=== PATIENT | female | born 1970 | race Caucasian/White ===

== ENCOUNTER 2017-11-24 01:11 | Observation (INO) | payer BC, OTHER ==
[2017-11-24] MEDS ORDERED: Sodium Chloride 0.9% 1,000 ML IV ONE (01:16)
[2017-11-24] MEDS ORDERED: Aspirin 81 MG Tab.Chew PO ONE (01:16)
[2017-11-24] MEDS ORDERED: Sodium Chloride 0.9% 2.5 ML Syringe FLUSH PRN (01:16)
[2017-11-24] MEDS ORDERED: Diltiazem 25 MG/5 ML SDV IVPUSH ONE ×2 (01:19→02:32)
[2017-11-24] MEDS: Sodium Chloride 0.9% 10 ML Syringe FLUSH PRN ×2 (01:25→01:30)
[2017-11-24] MEDS: Sodium Chloride 0.9% 2.5 ML Syringe FLUSH PRN ×2 (01:30→01:31)
--- NOTE | 2017-11-24 01:31 | EDM.PDOC ---
ED HPI GENERAL MEDICAL PROBLEM - General Chief Complaint: Cardiovascular Problem Stated Complaint: CHEST PAIN Time Seen by Provider: 11/24/17 01:24 Source of Information: Reports: Patient - History of Present Illness INITIAL COMMENTS - FREE TEXT/NARRATIVE: HISTORY AND PHYSICAL: History of present illness: 47-year-old female presenting to emergency department with chief complaint of chest pain and palpitations starting at 11 PM. Patient states that approximately 11 PM she felt some "weird fluttering of my heart". States that this has happened before but it usually went away quickly. She initially thought that this was secondary to her anxiety so laid down but her symptoms persisted. She did have some associated left substernal chest pain without radiation. She did have mild nausea but denies any shortness of breath diaphoresis or arm or jaw pain. Chest pain lasted for approximately 30 seconds to 1 minute and was relieved on its own. She had a previous episode that occurred several years ago but was short and went away on its own. She has never had further workup. She denies any significant cardio pulmonary history. Up until this she had been feeling her normal self and denies any recent illness , fever, chills, malaise, dysuria, nominal pain, diarrhea, or other signs of systemic infection. She currently denies any chest pain, shortness of breath, syncopal episodes, focal neurologic deficits. She denies any allergies and sees Dr. Cedeno at [facility] as her PCP. Patient was initially given 20 mg of Cardizem IV. She did have some gnosticist of normal sinus rhythm however did return to A. fib with RVR. She was given an additional 20 mg of Cardizem IV. Blood pressure remained stable. Potassium found to be 2.7. Patient given 40 mg KCl PO. Mag ordered. Review of systems: As per history of present illness and below otherwise all systems reviewed and negative. Past medical history: As per history of present illness and as reviewed below otherwise noncontributory. Surgical history: As per history of present illness and as reviewed below otherwise noncontributory. Social history: No reported history of drug or alcohol abuse. Family history: As per history of present illness and as reviewed below otherwise noncontributory. Physical exam: HEENT: Atraumatic, normocephalic, pupils reactive, negative for conjunctival pallor or scleral icterus, mucous membranes moist, throat clear, neck supple, nontender, trachea midline. Lungs: Clear to auscultation, breath sounds equal bilaterally, chest nontender. Heart: Irregular irregular, tachycardic, negative for clicks, rubs, or JVD. Abdomen: Soft, nondistended, nontender. Negative for masses or hepatosplenomegaly. Negative for costovertebral tenderness. Pelvis: Stable nontender. Genitourinary: Deferred. Rectal: Deferred. Extremities: Atraumatic, negative for cords or calf pain. Neurovascular unremarkable. Neuro: Awake, alert, oriented. Cranial nerves II through XII unremarkable. Cerebellum unremarkable. Motor and sensory unremarkable throughout. Exam nonfocal. Diagnostics: CBC, CMP, troponin, INR, chest x-ray, EKG, UA/UC, Mag Therapeutics: 1 L and normal saline, Cardizem 20 mg IV x2, KCl 40 mg Impression: A. fib with RVR Chest pain Plan: CBC, troponin, INR, chest x-ray, and UA were all unremarkable. Patient did have some hypokalemia and was given 40 mg oral KCl and magnesium was checked. Patient initially went in and out of A. fib with RVR after 20 mg of Cardizem. She did not sustain normal sinus rhythm so was given a additional Cardizem 20 mg IV which once again put her in normal sinus rhythm but did continue to have intermittent episodes of A. fib with RVR. Hospitalist Dr. Parrish was advised of the patient and accepted for observation for paroxysmal A. fib with RVR. Blood pressure remained stable in the 140s systolic throughout. Patient had no further episodes of chest pain. denies pain Pain Score (Numeric/FACES): 0 - Related Data Allergies Allergy/AdvReac Type Severity Reaction Status Date / Time No Known Allergies Allergy Verified 11/24/17 01:24 Home Meds: Home Meds Hydrochlorothiazide 25 mg PO DAILY 07/18/14 [History] Aspirin 1 tab PO DAILY 11/24/17 [History] ED ROS GENERAL - Review of Systems Review Of Systems: See Below ED EXAM, GENERAL - Physical Exam Exam: See Below Course - Vital Signs Last Recorded V/S: Last Vital Signs Temp 98.6 F 11/24/17 01:11 Pulse 120 H 11/24/17 02:40 Resp 18 11/24/17 02:40 BP 146/78 H 11/24/17 02:40 Pulse Ox 98 11/24/17 02:40 - Orders/Labs/Meds Orders: Active Orders 24 hr Category Date Time Status Cardiac Monitoring [RC] . DIRECTED Care 11/24/17 01:16 Active EKG Documentation Completion [RC] STAT Care 11/24/17 01:16 Active Oxygen Therapy [RC] ASDIRECTED Care 11/24/17 01:16 Active Pulse Oximetry [RC] ASDIRECTED Care 11/24/17 01:16 Active Chest 1V Frontal [CR] Stat Exams 11/24/17 01:16 Taken HCG QUALITATIVE,URINE [URCHEM] Stat Lab 11/24/17 02:01 Ordered MAGNESIUM [CHEM] Stat Lab 11/24/17 02:51 Ordered UA W/MICROSCOPIC [URIN] Stat Lab 11/24/17 02:01 Ordered Sodium Chloride 0.9% [Saline Flush] Med 11/24/17 01:16 Active 10 ml FLUSH ASDIRECTED PRN Sodium Chloride 0.9% [Saline Flush] Med 11/24/17 01:16 Active 2.5 ml FLUSH ASDIRECTED PRN Sodium Chloride 0.9% [Saline Flush] Med 11/24/17 01:16 Active 2.5 ml FLUSH ASDIRECTED PRN Saline Lock Insert [OM.PC] Stat Oth 11/24/17 01:16 Ordered Medication Orders Sodium Chloride (Saline Flush) 2.5 ml FLUSH ASDIRECTED PRN PRN Reason: Keep Vein Open Last Admin: 11/24/17 01:31 Dose: 2.5 ml Sodium Chloride (Saline Flush) 10 ml FLUSH ASDIRECTED PRN PRN Reason: Keep Vein Open Last Admin: 11/24/17 01:30 Dose: 10 ml Admin: 11/24/17 01:25 Dose: 10 ml Sodium Chloride (Saline Flush) 2.5 ml FLUSH ASDIRECTED PRN PRN Reason: Keep Vein Open Labs: Laboratory Tests 11/24/17 11/24/17 11/24/17 Range/Units 01:15 01:15 01:15 WBC 9.08 (4.0-11.0) K/uL RBC 4.27 L (4.30-5.90) M/uL Hgb 14.2 (12.0-16.0) g/dL Hct 40.3 (36.0-46.0) % MCV 94.4 (80.0-98.0) fL MCH 33.3 H (27.0-32.0) pg MCHC 35.2 (31.0-37.0) g/dL RDW Std Deviation 40.8 (28.0-62.0) fl RDW Coeff of Dominique 12 (11.0-15.0) % Plt Count 233 (150-400) K/uL MPV 10.40 (7.40-12.00) fL Neut % (Auto) 62.2 (48.0-80.0) % Lymph % (Auto) 26.1 (16.0-40.0) % [place] % (Auto) 9.0 (0.0-15.0) % Eos % (Auto) 2.6 (0.0-7.0) % Baso % (Auto) 0.1 (0.0-1.5) % Neut # (Auto) 5.6 (1.4-5.7) K/uL Lymph # (Auto) 2.4 (0.6-2.4) K/uL [place] # (Auto) 0.8 (0.0-0.8) K/uL Eos # (Auto) 0.2 (0.0-0.7) K/uL Baso # (Auto) 0.0 (0.0-0.1) K/uL INR 0.92 Sodium 140 (136-145) mmol/L Potassium 2.7 L (3.5-5.1) mmol/L Chloride 103 (98-107) mmol/L Carbon Dioxide 25.6 (21.0-32.0) mmol/L BUN 19 H (7.0-18.0) mg/dL Creatinine 1.2 H (0.6-1.0) mg/dL Est Cr Clr Drug Dosing 54.25 mL/min Estimated GFR (MDRD) 48.2 ml/min Glucose 119 H (74-106) mg/dL Calcium 8.8 (8.5-10.1) mg/dL Total Bilirubin 0.5 (0.2-1.0) mg/dL AST 20 (15-37) IU/L ALT 28 (14-63) IU/L Alkaline Phosphatase 55 (46-116) U/L Troponin I < 0.050 (0.000-0.056) ng/mL Total Protein 7.5 (6.4-8.2) g/dL Albumin 3.8 (3.4-5.0) g/dL Globulin 3.7 H (2.0-3.5) g/dL Albumin/Globulin Ratio 1.0 L (1.3-2.8) Urine Color Urine Appearance Urine pH (5.0-8.0) Ur Specific [place] (1.001-1.035) Urine Protein (NEGATIVE) mg/dL Urine Glucose (UA) (NEGATIVE) mg/dL Urine Ketones (NEGATIVE) mg/dL Urine Occult Blood (NEGATIVE) Urine Nitrite (NEGATIVE) Urine Bilirubin (NEGATIVE) Urine Urobilinogen (<2.0) EU/dL Ur Leukocyte Esterase (NEGATIVE) Urine RBC (0-2/HPF) Urine WBC (0-5/HPF) Ur Epithelial Cells (NONE-FEW) Urine Bacteria (NEGATIVE) Urine HCG, Qual (NEGATIVE) 11/24/17 11/24/17 Range/Units 02:01 02:01 WBC (4.0-11.0) K/uL RBC (4.30-5.90) M/uL Hgb (12.0-16.0) g/dL Hct (36.0-46.0) % MCV (80.0-98.0) fL MCH (27.0-32.0) pg MCHC (31.0-37.0) g/dL RDW Std Deviation (28.0-62.0) fl RDW Coeff of Dominique (11.0-15.0) % Plt Count (150-400) K/uL MPV (7.40-12.00) fL Neut % (Auto) (48.0-80.0) % Lymph % (Auto) (16.0-40.0) % [place] % (Auto) (0.0-15.0) % Eos % (Auto) (0.0-7.0) % Baso % (Auto) (0.0-1.5) % Neut # (Auto) (1.4-5.7) K/uL Lymph # (Auto) (0.6-2.4) K/uL [place] # (Auto) (0.0-0.8) K/uL Eos # (Auto) (0.0-0.7) K/uL Baso # (Auto) (0.0-0.1) K/uL INR Sodium (136-145) mmol/L Potassium (3.5-5.1) mmol/L Chloride (98-107) mmol/L Carbon Dioxide (21.0-32.0) mmol/L BUN (7.0-18.0) mg/dL Creatinine (0.6-1.0) mg/dL Est Cr Clr Drug Dosing mL/min Estimated GFR (MDRD) ml/min Glucose (74-106) mg/dL Calcium (8.5-10.1) mg/dL Total Bilirubin (0.2-1.0) mg/dL AST (15-37) IU/L ALT (14-63) IU/L Alkaline Phosphatase (46-116) U/L Troponin I (0.000-0.056) ng/mL Total Protein (6.4-8.2) g/dL Albumin (3.4-5.0) g/dL Globulin (2.0-3.5) g/dL Albumin/Globulin Ratio (1.3-2.8) Urine Color YELLOW Urine Appearance CLEAR Urine pH 6.0 (5.0-8.0) Ur Specific [place] <= 1.005 (1.001-1.035) Urine Protein NEGATIVE (NEGATIVE) mg/dL Urine Glucose (UA) NEGATIVE (NEGATIVE) mg/dL Urine Ketones NEGATIVE (NEGATIVE) mg/dL Urine Occult Blood NEGATIVE (NEGATIVE) Urine Nitrite NEGATIVE (NEGATIVE) Urine Bilirubin NEGATIVE (NEGATIVE) Urine Urobilinogen 0.2 (<2.0) EU/dL Ur Leukocyte Esterase NEGATIVE (NEGATIVE) Urine RBC 0-1 (0-2/HPF) Urine WBC 0-1 (0-5/HPF) Ur Epithelial Cells FEW (NONE-FEW) Urine Bacteria FEW (NEGATIVE) Urine HCG, Qual NEGATIVE (NEGATIVE) Meds: Medications Generic Name Dose Route Start Last Admin Trade Name Freq PRN Reason Stop Dose Admin Sodium Chloride 2.5 ml 11/24/17 01:16 11/24/17 01:31 Saline Flush FLUSH 2.5 ml ASDIRECTED PRN Administration Keep Vein Open Sodium Chloride 10 ml 11/24/17 01:16 11/24/17 01:30 Saline Flush FLUSH 10 ml ASDIRECTED PRN Administration Keep Vein Open Sodium Chloride 2.5 ml 11/24/17 01:16 Saline Flush FLUSH ASDIRECTED PRN Keep Vein Open Discontinued Medications Generic Name Dose Route Start Last Admin Trade Name Porfirioq PRN Reason Stop Dose Admin Aspirin 324 mg 11/24/17 01:16 11/24/17 01:26 Aspirin PO 11/24/17 01:17 324 mg ONETIME ONE Administration Diltiazem HCl 20 mg 11/24/17 01:19 11/24/17 01:20 Diltiazem IVPUSH 11/24/17 01:20 20 mg ONETIME ONE Administration Diltiazem HCl 20 mg 11/24/17 02:32 11/24/17 02:38 Diltiazem IVPUSH 11/24/17 02:33 20 mg ONETIME ONE Administration Sodium Chloride 1,000 mls @ 999 mls/hr 11/24/17 01:16 11/24/17 01:27 Normal Saline IV 11/24/17 02:16 999 mls/hr .Bolus ONE Administration Potassium Chloride 40 meq 11/24/17 02:50 Klor-Con M20 PO 11/24/17 02:51 ONETIME ONE Departure - Departure Time of Disposition: 03:06 Disposition: Admitted As Inpatient 66 Condition: Fair Clinical Impression: Paroxysmal atrial fibrillation with RVR Referrals: Jorge Cedeno MD [Primary Care Provider] - Forms: ED Department Discharge - My Orders Last 24 Hours: My Active Orders 11/24/17 01:16 Cardiac Monitoring [RC] . DIRECTED EKG Documentation Completion [RC] STAT Oxygen Therapy [RC] ASDIRECTED Pulse Oximetry [RC] ASDIRECTED Chest 1V Frontal [CR] Stat Sodium Chloride 0.9% [Saline Flush] 10 ml FLUSH ASDIRECTED PRN Sodium Chloride 0.9% [Saline Flush] 2.5 ml FLUSH ASDIRECTED PRN Sodium Chloride 0.9% [Saline Flush] 2.5 ml FLUSH ASDIRECTED PRN Saline Lock Insert [OM.PC] Stat 11/24/17 02:01 HCG QUALITATIVE,URINE [URCHEM] Stat UA W/MICROSCOPIC [URIN] Stat 11/24/17 02:51 MAGNESIUM [CHEM] Stat - Assessment/Plan Last 24 Hours: My Active Orders 11/24/17 01:16 Cardiac Monitoring [RC] . DIRECTED EKG Documentation Completion [RC] STAT Oxygen Therapy [RC] ASDIRECTED Pulse Oximetry [RC] ASDIRECTED Chest 1V Frontal [CR] Stat Sodium Chloride 0.9% [Saline Flush] 10 ml FLUSH ASDIRECTED PRN Sodium Chloride 0.9% [Saline Flush] 2.5 ml FLUSH ASDIRECTED PRN Sodium Chloride 0.9% [Saline Flush] 2.5 ml FLUSH ASDIRECTED PRN Saline Lock Insert [OM.PC] Stat 11/24/17 02:01 HCG QUALITATIVE,URINE [URCHEM] Stat UA W/MICROSCOPIC [URIN] Stat 11/24/17 02:51 MAGNESIUM [CHEM] Stat
[2017-11-24 02:18] LABS: CHLORIDE,CL 103 mmol/L (98-107); SODIUM,NA 140 mmol/L (136-145)
[2017-11-24] MEDS ORDERED: Potassium Chloride 20 MEQ Tab.ER PO ONE ×2 (02:50→19:35)
[2017-11-24] MEDS ORDERED: Magnesium Sulfate/Water 4 GM in Premix Bag 1 BAG IV ONE (04:24)
[2017-11-24] MEDS: Sodium Chloride 0.9% with KCl 1,000 ML IV SCH ×3 (05:30→18:41)
[2017-11-24] MEDS: Diltiazem 25 MG/5 ML SDV IVPUSH PRN ×3 (07:20→14:44)
--- NOTE | 2017-11-24 07:49 | PCM.HP ---
H&P History of Present Illness - General Date of Service: 11/24/17 Admit Problem/Dx: Admission Diagnosis/Problem Admission Diagnosis/Problem Atrial fibrillation with rapid ventricular response Source of Information: Patient History Limitations: Reports: No Limitations - History of Present Illness Initial Comments - Free Text/Narative: 47 yo fm with PMH of HTN admitted for AF with RVR. She developed palpitations and racing heart late last night around midnight. Symptoms were continuous so she decided to present to the ED. She denies any associated chest pain, sob, diaphoresis, dizziness, syncope, vision change, swelling, orthopnea, nausea, vomiting, abdominal pain, diarrhea, fever or chills. She has never had similar symptoms in the past. She has not had any recent illness or sob with activity. She admits to drinking 4-5 alcoholic beverages at a alliance party the day prior but states this was more alcohol than she usually drinks. She admits to normally drinking 1-3 alcoholic beverages on weekends only. Daily caffeine consumption includes 2 cups of coffee and a mountain dew. She is only on HCTZ for her HTN and states she is adherent to therapy. She was recently re-started on Diethylpropion for weight loss by her PCP Dr. Cedeno. She has taken this medication on and off an was on it last year for a few months and then just restarted 1 month prior. She is a previous smoker with estimated 20 pack year history but quit 1 year ago. In the ED her HR was 169 at admission. She was given Cardizem IV 20 mg x 2 doses. Her HR went down to 110s but then increased back up to 120-140s. She was also found to have to have hypokalemia with K of 2.7 and mild RUTH with Cr of 1.2. She was given 40 meq of K and 1 L NS bolus. Her CBC, CMP, troponin, UA and CXR were otherwise normal. She states that after receiving the medications her palpitations improved but never resolved. They have mostly been continuous since then. denies pain Pain Score (Numeric/FACES): 0 - Related Data Allergies/Adverse Reactions: Allergies Allergy/AdvReac Type Severity Reaction Status Date / Time Sulfa (Sulfonamide Allergy Rash Verified 11/24/17 03:52 Antibiotics) Home Medications: Home Meds Hydrochlorothiazide 25 mg PO DAILY 07/18/14 [History] Aspirin 1 tab PO DAILY 11/24/17 [History] Past Medical History Cardiovascular History: Reports: Hypertension - Past Surgical History HEENT Surgical History: Reports: Tonsillectomy Female Surgical History: Reports: Tubal Ligation Musculoskeletal Surgical History: Reports: Ganglion Cyst Social & Family History - Family History Family Medical History: Noncontributory - Tobacco Use Smoking Status *Q: Former Smoker Used Tobacco, but Quit: No - Caffeine Use Caffeine Use: Reports: Coffee - Alcohol Use Date of Last Drink: 11/22/17 - Recreational Drug Use Recreational Drug Use: No H&P Review of Systems - Review of Systems: Review Of Systems: See Below General: Reports: No Symptoms HEENT: Reports: No Symptoms Pulmonary: Reports: No Symptoms Cardiovascular: Reports: Palpitations Gastrointestinal: Reports: No Symptoms Genitourinary: Reports: No Symptoms Musculoskeletal: Reports: No Symptoms Skin: Reports: No Symptoms Psychiatric: Reports: No Symptoms Neurological: Reports: No Symptoms Hematologic/Lymphatic: Reports: No Symptoms Immunologic: Reports: No Symptoms Exam - Exam Exam: See Below - Vital Signs Vital Signs: Last Vital Signs Temp 36.6 C 11/24/17 07:18 Pulse 119 H 11/24/17 07:18 Resp 18 11/24/17 07:18 BP 124/66 11/24/17 07:18 Pulse Ox 97 11/24/17 07:18 Weight: 109.5 kg - Exam General: Alert, Oriented HEENT: Conjunctiva Clear, EACs Clear, EOMI, Hearing Intact, Mucosa Moist & [place] , Nares Patent, Normal Nasal Septum, Posterior Pharynx Clear, Pupils Equal, Pupils Reactive Neck: Supple, Trachea Midline Lungs: Clear to Auscultation, Normal Respiratory Effort Cardiovascular: Irregular Rhythm, Tachycardia GI/Abdominal Exam: Normal Bowel Sounds, Soft, Non-Tender, No Distention Back Exam: Normal Inspection, Full Range of Motion Extremities: Normal Inspection, Normal Range of Motion, Non-Tender, No Pedal Edema, Normal Capillary Refill Skin: Warm, Dry, Intact Neurological: Cranial Nerves Intact, Reflexes Equal Bilateral Neuro Extensive - Mental Status: Alert, Oriented x3, Normal Mood/Affect, Normal Cognition, Memory Intact Psychiatric: Alert, Normal Affect, Normal Mood - Patient Data Lab Results Last 24 hrs: Laboratory Results - last 24 hr 11/24/17 11/24/17 11/24/17 Range/Units 01:15 01:15 01:15 WBC 9.08 (4.0-11.0) K/uL RBC 4.27 L (4.30-5.90) M/uL Hgb 14.2 (12.0-16.0) g/dL Hct 40.3 (36.0-46.0) % MCV 94.4 (80.0-98.0) fL MCH 33.3 H (27.0-32.0) pg MCHC 35.2 (31.0-37.0) g/dL RDW Std Deviation 40.8 (28.0-62.0) fl RDW Coeff of Dominique 12 (11.0-15.0) % Plt Count 233 (150-400) K/uL MPV 10.40 (7.40-12.00) fL Neut % (Auto) 62.2 (48.0-80.0) % Lymph % (Auto) 26.1 (16.0-40.0) % [place] % (Auto) 9.0 (0.0-15.0) % Eos % (Auto) 2.6 (0.0-7.0) % Baso % (Auto) 0.1 (0.0-1.5) % Neut # (Auto) 5.6 (1.4-5.7) K/uL Lymph # (Auto) 2.4 (0.6-2.4) K/uL [place] # (Auto) 0.8 (0.0-0.8) K/uL Eos # (Auto) 0.2 (0.0-0.7) K/uL Baso # (Auto) 0.0 (0.0-0.1) K/uL INR 0.92 Sodium 140 (136-145) mmol/L Potassium 2.7 L (3.5-5.1) mmol/L Chloride 103 (98-107) mmol/L Carbon Dioxide 25.6 (21.0-32.0) mmol/L BUN 19 H (7.0-18.0) mg/dL Creatinine 1.2 H (0.6-1.0) mg/dL Est Cr Clr Drug Dosing 54.25 mL/min Estimated GFR (MDRD) 48.2 ml/min Glucose 119 H (74-106) mg/dL Calcium 8.8 (8.5-10.1) mg/dL Magnesium (1.5-2.0) mg/dL Total Bilirubin 0.5 (0.2-1.0) mg/dL AST 20 (15-37) IU/L ALT 28 (14-63) IU/L Alkaline Phosphatase 55 (46-116) U/L Troponin I < 0.050 (0.000-0.056) ng/mL Total Protein 7.5 (6.4-8.2) g/dL Albumin 3.8 (3.4-5.0) g/dL Globulin 3.7 H (2.0-3.5) g/dL Albumin/Globulin Ratio 1.0 L (1.3-2.8) Urine Color Urine Appearance Urine pH (5.0-8.0) Ur Specific [place] (1.001-1.035) Urine Protein (NEGATIVE) mg/dL Urine Glucose (UA) (NEGATIVE) mg/dL Urine Ketones (NEGATIVE) mg/dL Urine Occult Blood (NEGATIVE) Urine Nitrite (NEGATIVE) Urine Bilirubin (NEGATIVE) Urine Urobilinogen (<2.0) EU/dL Ur Leukocyte Esterase (NEGATIVE) Urine RBC (0-2/HPF) Urine WBC (0-5/HPF) Ur Epithelial Cells (NONE-FEW) Urine Bacteria (NEGATIVE) Urine HCG, Qual (NEGATIVE) 11/24/17 11/24/17 11/24/17 Range/Units 02:01 02:01 02:51 WBC (4.0-11.0) K/uL RBC (4.30-5.90) M/uL Hgb (12.0-16.0) g/dL Hct (36.0-46.0) % MCV (80.0-98.0) fL MCH (27.0-32.0) pg MCHC (31.0-37.0) g/dL RDW Std Deviation (28.0-62.0) fl RDW Coeff of Dominique (11.0-15.0) % Plt Count (150-400) K/uL MPV (7.40-12.00) fL Neut % (Auto) (48.0-80.0) % Lymph % (Auto) (16.0-40.0) % [place] % (Auto) (0.0-15.0) % Eos % (Auto) (0.0-7.0) % Baso % (Auto) (0.0-1.5) % Neut # (Auto) (1.4-5.7) K/uL Lymph # (Auto) (0.6-2.4) K/uL [place] # (Auto) (0.0-0.8) K/uL Eos # (Auto) (0.0-0.7) K/uL Baso # (Auto) (0.0-0.1) K/uL INR Sodium (136-145) mmol/L Potassium (3.5-5.1) mmol/L Chloride (98-107) mmol/L Carbon Dioxide (21.0-32.0) mmol/L BUN (7.0-18.0) mg/dL Creatinine (0.6-1.0) mg/dL Est Cr Clr Drug Dosing mL/min Estimated GFR (MDRD) ml/min Glucose (74-106) mg/dL Calcium (8.5-10.1) mg/dL Magnesium 1.8 (1.5-2.0) mg/dL Total Bilirubin (0.2-1.0) mg/dL AST (15-37) IU/L ALT (14-63) IU/L Alkaline Phosphatase (46-116) U/L Troponin I (0.000-0.056) ng/mL Total Protein (6.4-8.2) g/dL Albumin (3.4-5.0) g/dL Globulin (2.0-3.5) g/dL Albumin/Globulin Ratio (1.3-2.8) Urine Color YELLOW Urine Appearance CLEAR Urine pH 6.0 (5.0-8.0) Ur Specific [place] <= 1.005 (1.001-1.035) Urine Protein NEGATIVE (NEGATIVE) mg/dL Urine Glucose (UA) NEGATIVE (NEGATIVE) mg/dL Urine Ketones NEGATIVE (NEGATIVE) mg/dL Urine Occult Blood NEGATIVE (NEGATIVE) Urine Nitrite NEGATIVE (NEGATIVE) Urine Bilirubin NEGATIVE (NEGATIVE) Urine Urobilinogen 0.2 (<2.0) EU/dL Ur Leukocyte Esterase NEGATIVE (NEGATIVE) Urine RBC 0-1 (0-2/HPF) Urine WBC 0-1 (0-5/HPF) Ur Epithelial Cells FEW (NONE-FEW) Urine Bacteria FEW (NEGATIVE) Urine HCG, Qual NEGATIVE (NEGATIVE) 05/28/18 Range/Units 07:07 WBC (4.0-11.0) K/uL RBC (4.30-5.90) M/uL Hgb (12.0-16.0) g/dL Hct (36.0-46.0) % MCV (80.0-98.0) fL MCH (27.0-32.0) pg MCHC (31.0-37.0) g/dL RDW Std Deviation (28.0-62.0) fl RDW Coeff of Dominique (11.0-15.0) % Plt Count (150-400) K/uL MPV (7.40-12.00) fL Neut % (Auto) (48.0-80.0) % Lymph % (Auto) (16.0-40.0) % [place] % (Auto) (0.0-15.0) % Eos % (Auto) (0.0-7.0) % Baso % (Auto) (0.0-1.5) % Neut # (Auto) (1.4-5.7) K/uL Lymph # (Auto) (0.6-2.4) K/uL [place] # (Auto) (0.0-0.8) K/uL Eos # (Auto) (0.0-0.7) K/uL Baso # (Auto) (0.0-0.1) K/uL INR Sodium (136-145) mmol/L Potassium (3.5-5.1) mmol/L Chloride (98-107) mmol/L Carbon Dioxide (21.0-32.0) mmol/L BUN (7.0-18.0) mg/dL Creatinine (0.6-1.0) mg/dL Est Cr Clr Drug Dosing mL/min Estimated GFR (MDRD) ml/min Glucose (74-106) mg/dL Calcium (8.5-10.1) mg/dL Magnesium (1.5-2.0) mg/dL Total Bilirubin (0.2-1.0) mg/dL AST (15-37) IU/L ALT (14-63) IU/L Alkaline Phosphatase (46-116) U/L Troponin I < 0.050 (0.000-0.056) ng/mL Total Protein (6.4-8.2) g/dL Albumin (3.4-5.0) g/dL Globulin (2.0-3.5) g/dL Albumin/Globulin Ratio (1.3-2.8) Urine Color Urine Appearance Urine pH (5.0-8.0) Ur Specific [place] (1.001-1.035) Urine Protein (NEGATIVE) mg/dL Urine Glucose (UA) (NEGATIVE) mg/dL Urine Ketones (NEGATIVE) mg/dL Urine Occult Blood (NEGATIVE) Urine Nitrite (NEGATIVE) Urine Bilirubin (NEGATIVE) Urine Urobilinogen (<2.0) EU/dL Ur Leukocyte Esterase (NEGATIVE) Urine RBC (0-2/HPF) Urine WBC (0-5/HPF) Ur Epithelial Cells (NONE-FEW) Urine Bacteria (NEGATIVE) Urine HCG, Qual (NEGATIVE) Result Diagrams: 11/24/17 01:15 11/24/17 01:15 Problem List Initiated/Reviewed/Updated: Yes Orders Last 24hrs: Active Orders 24 hr Category Date Time Status Admission Status [Patient Status] [ADT] Stat ADT 11/24/17 03:20 Active Cardiac Monitoring [RC] . DIRECTED Care 11/24/17 01:16 Active Cardiac Monitoring [RC] . DIRECTED Care 11/24/17 03:20 Active Oxygen Therapy [RC] ASDIRECTED Care 11/24/17 01:16 Active Pulse Oximetry [RC] ASDIRECTED Care 11/24/17 01:16 Active Telemetry Monitoring [Cardiac Monitoring] [RC] Q8H Care 11/24/17 03:24 Active Regular Diet [DIET] Diet 11/24/17 Breakfast Active Chest 1V Frontal [CR] Stat Exams 11/24/17 01:16 Taken B-TYPE NATRIURETIC PEPTIDE,BNP [CHEM] Routine Lab 11/24/17 07:48 Ordered HCG QUALITATIVE,URINE [URCHEM] Stat Lab 11/24/17 02:01 Ordered TROPONIN I [CHEM] Q6H Lab 11/24/17 13:15 Ordered TSH [CHEM] Routine Lab 11/24/17 07:48 Ordered UA W/MICROSCOPIC [URIN] Stat Lab 11/24/17 02:01 Ordered Diltiazem Med 11/24/17 04:24 Active 10 mg IVPUSH Q3H PRN Metoprolol Tartrate [Lopressor] Med 11/24/17 09:00 Active 50 mg PO Q12HR Sodium Chloride 0.9% [Saline Flush] Med 11/24/17 01:16 Active 10 ml FLUSH ASDIRECTED PRN Sodium Chloride 0.9% [Saline Flush] Med 11/24/17 01:16 Active 2.5 ml FLUSH ASDIRECTED PRN Sodium Chloride 0.9% [Saline Flush] Med 11/24/17 01:16 Active 2.5 ml FLUSH ASDIRECTED PRN Sodium Chloride 0.9% with KCl [Normal Saline with 40 Med 11/24/17 04:30 Active mEq KCl] 1,000 ml IV ASDIRECTED Saline Lock Insert [OM.PC] Stat Oth 11/24/17 01:16 Ordered Medication Orders Diltiazem HCl (Diltiazem) 10 mg IVPUSH Q3H PRN PRN Reason: Tachycardia Last Admin: 11/24/17 07:20 Dose: 10 mg Potassium Chloride/Sodium Chloride (Normal Saline With 40 Meq Kcl) 1,000 mls @ 150 mls/hr IV ASDIRECTED BECKI Last Admin: 11/24/17 05:30 Dose: 150 mls/hr Metoprolol Tartrate (Lopressor) 50 mg PO Q12HR BECKI Sodium Chloride (Saline Flush) 2.5 ml FLUSH ASDIRECTED PRN PRN Reason: Keep Vein Open Last Admin: 11/24/17 01:31 Dose: 2.5 ml Sodium Chloride (Saline Flush) 10 ml FLUSH ASDIRECTED PRN PRN Reason: Keep Vein Open Last Admin: 11/24/17 01:30 Dose: 10 ml Admin: 11/24/17 01:25 Dose: 10 ml Sodium Chloride (Saline Flush) 2.5 ml FLUSH ASDIRECTED PRN PRN Reason: Keep Vein Open Assessment/Plan Comment:: 47 yo fm with history of HTN admitted for new onset AF with RVR. #AF with RVR -new onset, hr 120-140's after Cardizem 20 mg IV x2, BP stable, palpitations but otherwise asymptomatic -Hx of HTN controlled with HCTZ and Obesity on Diethylpropion -[id number] score 2 Plan: -admit to obs -cardiac monitoring -add TSH and BNP to labs -obtain echo -start Lopressor 50 mg BID -consider transfer to ICU for Cardizem Infusion if HR control not achieved #Hypokalemia -2.7 in ED, received 40 meq -repeat BMP in evening #RUTH -BUN 19, Cr 1.2, GFR 48.2 -received 1L IV NS bolus in ED -continue to monitor code: full diet: cardiac DVT Prophylaxis: Lovenox
[2017-11-24] MEDS ORDERED: Metoprolol Tartrate 50 MG Tab PO SCH (09:00)
[2017-11-24] MEDS ORDERED: Docusate Sodium 100 MG Cap PO PRN (09:18)
[2017-11-24] MEDS ORDERED: Acetaminophen 325 MG Tab PO PRN (09:18)
[2017-11-24] MEDS ORDERED: Ondansetron 4 MG Tab.DIS PO PRN (09:18)
[2017-11-24] MEDS: Enoxaparin 40 MG/0.4 ML Syringe SUBCUT SCH (10:34)
[2017-11-24] MEDS ORDERED: Metoprolol Tartrate 25 MG Tab PO ONE (12:59)
[2017-11-24] MEDS ORDERED: Diltiazem IR 30 MG Tab PO ONE (17:33)
[2017-11-24] MEDS: Metoprolol Tartrate 25 MG Tab PO SCH (20:03)
[2017-11-25] MEDS: Diltiazem IR 30 MG Tab PO SCH ×2 (00:24→06:23)
[2017-11-25] MEDS: Sodium Chloride 0.9% with KCl 1,000 ML IV SCH (01:30)
[2017-11-25 05:54] LABS: CHLORIDE,CL 112 mmol/L (98-107); SODIUM,NA 141 mmol/L (136-145)
[2017-11-25] MEDS: Metoprolol Tartrate 25 MG Tab PO SCH (08:47)
[2017-11-25 08:48] VITALS: BP 109/62
[2017-11-25] MEDS: Enoxaparin 40 MG/0.4 ML Syringe SUBCUT SCH (08:48)
--- NOTE | 2017-11-25 08:57 | PCM.DCSUM1 ---
<Sharona,Armani - Last Filed: 11/25/17 09:16> Discharge Summary - Hospital Course Free Text/Narrative:: 47 yo fm with history of HTN was admitted on 11/24/17 for new-onset Atrial fibrillation with RVR. She developed continuous palpitations around 11 pm on which promped her to go to ED. She denied any associated chest pain, sob, diaphoresis, dizziness, syncope, vision change, swelling, orthopnea, nausea, vomiting, abdominal pain, diarrhea, fever or chills. She has never had similar symptoms in the past. She has not had any recent illness or sob with activity. She admits to drinking 4-5 alcoholic beverages at a libertarian the day prior but states this was more alcohol than she usually drinks. She admits to normally drinking 1-3 alcoholic beverages on weekends only. Daily caffeine consumption includes 2 cups of coffee and a mountain dew. She is only on HCTZ for her HTN and states she is adherent to therapy. She was recently re-started on Diethylpropion for weight loss by her PCP Dr. Cedeno. She has taken this medication on and off an was on it last year for a few months and then just restarted 1 month prior. She is a previous smoker with estimated 20 pack year history but quit 1 year ago. In the ED her HR was 169 at admission. She was given Cardizem IV 20 mg x 2 doses. Her HR went down to 110s but then increased back up to 120-140s. She was also found to have to have hypokalemia with K of 2.7 and mild RUTH with Cr of 1.2. She was given 40 meq of K and 1 L NS bolus. Her CBC, CMP, troponin, UA and CXR were otherwise normal. She was admitted to floor for continued monitoring. She was started on Lopressor 50 mg BID which was then increased to 75 mg BID. She remained AF with hr 90-120. Cardizem 30 mg Q6H was then added. She received second dose of Cardizem 30 mg just after midnight of 11/24/17 and shortly after that converted back to NSR and remained so through the rest of night. From the time her symptoms started at home to conversion to NSR was 24-26 hours. She was discharged home on Cardizem CD 120 mg QD. She was on HCTZ for HTN which was held during stay, her BP was ranging 100-110 on Cardizem, therefore HCTZ was discontinued. Her Diethylproprion was also DC due to stimulatory effects. She was given Lovenox for anticoagulation during her stay, her [id number] score was 2, she was therefore discharged home on Eliquis. Echocardiogram was completed prior to discharge but reading was unavailable. F/U with Dr. Estrada hat finishing materials preparer was arranged prior to discharge. Discharge Diagnosis: #Atrial Fibrillation with RVR, resolved (duration approximately 24-26 hours) #Hx HTN, controlled -discontinue HCTZ -discontinue Diethylpropion -start Cardizem CD 120 mg QD -start Eliquis 5 mg BID -awaiting Echo results -f/u with Dr. Estrada, cardiology #RUTH, likely secondary to renal hypoperfusion, resolved -renal function at discharge BUN 13, Cr 0.9, GFR>60 #Hypokalemia, corrected #Hypocalcemia -mild, asymptomatic -start Calcium Carbonate OTC - Discharge Data Discharge Date: 11/25/17 Discharge Disposition: Home, Self-Care 01 Condition: Good - Patient Instructions Diet: Regular Diet as Tolerated Diet, Other: avoid excessive alcohol and caffeine Activity: As Tolerated Driving: May Drive Today Showering/Bathing: May Shower Notify Provider of: Fever, Increased Pain, Swelling and Redness, Drainage, Nausea and/or Vomiting - Discharge Plan Prescriptions/Med Rec: Apixaban [Eliquis] 5 mg PO BID 15 Days #30 tablet Diltiazem [Cardizem CD] 120 mg PO DAILY 15 Days #15 cap.er Home Medications: Home Meds Aspirin 1 tab PO DAILY 11/24/17 [History] Apixaban [Eliquis] 5 mg PO BID 15 Days #30 tablet 11/25/17 [Rx] Diltiazem [Cardizem CD] 120 mg PO DAILY 15 Days #15 cap.er 11/25/17 [Rx] Patient Handouts: Diltiazem extended-release capsules or tablets, Apixaban oral tablets, Atrial Fibrillation, [id number] Referrals: Aleksandra Estrada MD [Physician] - 11/27/17 3:30 pm Jorge Cedeno MD [Primary Care Provider] - 12/01/17 1:00 pm - Discharge Summary/Plan Comment DC Time >30 min.: No - Review of Systems General: Reports: No Symptoms HEENT: Reports: No Symptoms Pulmonary: Reports: No Symptoms Cardiovascular: Reports: No Symptoms Gastrointestinal: Reports: No Symptoms Genitourinary: Reports: No Symptoms Musculoskeletal: Reports: No Symptoms Skin: Reports: No Symptoms Neurological: Reports: No Symptoms Psychiatric: Reports: No Symptoms - Patient Data Vitals - Most Recent: Last Vital Signs Temp 36.6 C 11/25/17 07:31 Pulse 66 11/25/17 07:31 Resp 16 11/25/17 07:31 BP 106/66 11/25/17 07:31 Pulse Ox 96 11/25/17 07:31 Weight - Most Recent: 112.491 kg I&O - Last 24 hours: Intake & Output 11/24/17 11/25/17 11/25/17 22:59 06:59 14:59 Intake Total 2724 Output Total 1700 1700 Balance -1700 1024 Lab Results - Last 24 hrs: Laboratory Results - last 24 hr 11/24/17 11/24/17 11/24/17 Range/Units 07:07 13:40 13:40 Sodium 142 (136-145) mmol/L Potassium 3.6 (3.5-5.1) mmol/L Chloride 110 H (98-107) mmol/L Carbon Dioxide 23.6 (21.0-32.0) mmol/L BUN 13 (7.0-18.0) mg/dL Creatinine 1.0 (0.6-1.0) mg/dL Est Cr Clr Drug Dosing 67.63 mL/min Estimated GFR (MDRD) 59.4 ml/min Glucose 109 H (74-106) mg/dL Calcium 7.9 L (8.5-10.1) mg/dL Magnesium (1.5-2.0) mg/dL Troponin I < 0.050 (0.000-0.056) ng/mL TSH 3rd Generation 2.15 (0.36-3.74) uIU/mL 11/25/17 Range/Units 04:55 Sodium 141 (136-145) mmol/L Potassium 4.4 (3.5-5.1) mmol/L Chloride 112 H (98-107) mmol/L Carbon Dioxide 21.6 (21.0-32.0) mmol/L BUN 13 (7.0-18.0) mg/dL Creatinine 0.9 (0.6-1.0) mg/dL Est Cr Clr Drug Dosing 75.15 mL/min Estimated GFR (MDRD) > 60.0 ml/min Glucose 110 H (74-106) mg/dL Calcium 7.7 L (8.5-10.1) mg/dL Magnesium 2.1 H (1.5-2.0) mg/dL Troponin I (0.000-0.056) ng/mL TSH 3rd Generation (0.36-3.74) uIU/mL Med Orders - Current: Current Medications Acetaminophen (Tylenol) 650 mg PO Q4H PRN PRN Reason: Pain (Mild 1-3)/fever Diltiazem HCl (Cardizem) 30 mg PO Q6HR [facility] Last Admin: 11/25/17 06:23 Dose: 30 mg Docusate Sodium (Colace) 100 mg PO BID PRN PRN Reason: Constipation Last Admin: 11/24/17 10:33 Dose: 100 mg Enoxaparin Sodium (Lovenox) 40 mg SUBCUT Q24H [facility] Last Admin: 11/24/17 10:34 Dose: 40 mg Potassium Chloride/Sodium Chloride (Normal Saline With 40 Meq Kcl) 1,000 mls @ 150 mls/hr IV ASDIRECTED [facility] Last Admin: 11/25/17 01:30 Dose: 150 mls/hr Metoprolol Tartrate (Lopressor) 75 mg PO Q12HR [facility] Last Admin: 11/24/17 20:03 Dose: 75 mg Ondansetron HCl (Zofran Odt) 4 mg PO Q4H PRN PRN Reason: nausea, able to take PO Sodium Chloride (Saline Flush) 2.5 ml FLUSH ASDIRECTED PRN PRN Reason: Keep Vein Open Last Admin: 11/24/17 01:31 Dose: 2.5 ml Sodium Chloride (Saline Flush) 10 ml FLUSH ASDIRECTED PRN PRN Reason: Keep Vein Open Last Admin: 11/24/17 01:30 Dose: 10 ml Sodium Chloride (Saline Flush) 2.5 ml FLUSH ASDIRECTED PRN PRN Reason: Keep Vein Open Discontinued Medications Aspirin (Aspirin) 324 mg PO ONETIME ONE Stop: 11/24/17 01:17 Last Admin: 11/24/17 01:26 Dose: 324 mg Diltiazem HCl (Diltiazem) 20 mg IVPUSH ONETIME ONE Stop: 11/24/17 01:20 Last Admin: 11/24/17 01:20 Dose: 20 mg Diltiazem HCl (Diltiazem) 20 mg IVPUSH ONETIME ONE Stop: 11/24/17 02:33 Last Admin: 11/24/17 02:38 Dose: 20 mg Diltiazem HCl (Diltiazem) 10 mg IVPUSH Q3H PRN PRN Reason: Tachycardia Last Admin: 11/24/17 14:44 Dose: 10 mg Diltiazem HCl (Cardizem) 30 mg PO ONETIME ONE Stop: 11/24/17 17:34 Last Admin: 11/24/17 18:03 Dose: 30 mg Sodium Chloride (Normal Saline) 1,000 mls @ 999 mls/hr IV .Bolus ONE Stop: 11/24/17 02:16 Last Admin: 11/24/17 01:27 Dose: 999 mls/hr Magnesium Sulfate 4 gm/ Premix 100 mls @ 50 mls/hr IV ONETIME ONE Stop: 11/24/17 06:23 Last Admin: 11/24/17 05:30 Dose: 50 mls/hr Metoprolol Tartrate (Lopressor) 50 mg PO Q12HR [facility]KI Last Admin: 11/24/17 08:46 Dose: 50 mg Metoprolol Tartrate (Lopressor) 25 mg PO ONETIME ONE Stop: 11/24/17 13:00 Last Admin: 11/24/17 13:59 Dose: 25 mg Potassium Chloride (Klor-Con M20) 40 meq PO ONETIME ONE Stop: 11/24/17 02:51 Last Admin: 11/24/17 03:06 Dose: 40 meq Potassium Chloride (Klor-Con M20) 40 meq PO ONETIME ONE Stop: 11/24/17 19:36 Last Admin: 11/24/17 20:03 Dose: 40 meq - Exam General: Reports: Alert, Oriented HEENT: Reports: Pupils Equal, Pupils Reactive, EOMI, Mucous Membr. Moist/[place] Neck: Reports: Supple Lungs: Reports: Clear to Auscultation, Normal Respiratory Effort Cardiovascular: Reports: Regular Rate, Regular Rhythm GI/Abdominal Exam: Normal Bowel Sounds, Soft, Non-Tender, No Organomegaly Back Exam: Reports: Normal Inspection, Full Range of Motion Extremities: Normal Inspection, Normal Range of Motion, No Pedal Edema, Normal Capillary Refill Skin: Reports: Warm, Dry, Intact Neurological: Reports: No New Focal Deficit Psy/Mental Status: Reports: Alert, Normal Affect, Normal Mood <Berto Parrish - Last Filed: 11/28/17 08:39> - Patient Data Vitals - Most Recent: Last Vital Signs Temp 36.6 C 11/25/17 07:31 Pulse 65 11/25/17 08:47 Resp 16 11/25/17 07:31 BP 109/62 11/25/17 08:47 Pulse Ox 96 11/25/17 09:18 Med Orders - Current: Current Medications Discontinued Medications Acetaminophen (Tylenol) 650 mg PO Q4H PRN PRN Reason: Pain (Mild 1-3)/fever Aspirin (Aspirin) 324 mg PO ONETIME ONE Stop: 11/24/17 01:17 Last Admin: 11/24/17 01:26 Dose: 324 mg Diltiazem HCl (Diltiazem) 20 mg IVPUSH ONETIME ONE Stop: 11/24/17 01:20 Last Admin: 11/24/17 01:20 Dose: 20 mg Diltiazem HCl (Diltiazem) 20 mg IVPUSH ONETIME ONE Stop: 11/24/17 02:33 Last Admin: 11/24/17 02:38 Dose: 20 mg Diltiazem HCl (Diltiazem) 10 mg IVPUSH Q3H PRN PRN Reason: Tachycardia Last Admin: 11/24/17 14:44 Dose: 10 mg Diltiazem HCl (Cardizem) 30 mg PO ONETIME ONE Stop: 11/24/17 17:34 Last Admin: 11/24/17 18:03 Dose: 30 mg Diltiazem HCl (Cardizem) 30 mg PO Q6HR [facility] Last Admin: 11/25/17 06:23 Dose: 30 mg Docusate Sodium (Colace) 100 mg PO BID PRN PRN Reason: Constipation Last Admin: 11/24/17 10:33 Dose: 100 mg Enoxaparin Sodium (Lovenox) 40 mg SUBCUT Q24H [facility] Last Admin: 11/25/17 08:48 Dose: 40 mg Sodium Chloride (Normal Saline) 1,000 mls @ 999 mls/hr IV .Bolus ONE Stop: 11/24/17 02:16 Last Admin: 11/24/17 01:27 Dose: 999 mls/hr Potassium Chloride/Sodium Chloride (Normal Saline With 40 Meq Kcl) 1,000 mls @ 150 mls/hr IV ASDIRECTED [facility] Last Admin: 11/25/17 01:30 Dose: 150 mls/hr Magnesium Sulfate 4 gm/ Premix 100 mls @ 50 mls/hr IV ONETIME ONE Stop: 11/24/17 06:23 Last Admin: 11/24/17 05:30 Dose: 50 mls/hr Metoprolol Tartrate (Lopressor) 50 mg PO Q12HR [facility] Last Admin: 11/24/17 08:46 Dose: 50 mg Metoprolol Tartrate (Lopressor) 25 mg PO ONETIME ONE Stop: 11/24/17 13:00 Last Admin: 11/24/17 13:59 Dose: 25 mg Metoprolol Tartrate (Lopressor) 75 mg PO Q12HR [facility] Last Admin: 11/25/17 08:47 Dose: 75 mg Ondansetron HCl (Zofran Odt) 4 mg PO Q4H PRN PRN Reason: nausea, able to take PO Potassium Chloride (Klor-Con M20) 40 meq PO ONETIME ONE Stop: 11/24/17 02:51 Last Admin: 11/24/17 03:06 Dose: 40 meq Potassium Chloride (Klor-Con M20) 40 meq PO ONETIME ONE Stop: 11/24/17 19:36 Last Admin: 11/24/17 20:03 Dose: 40 meq Sodium Chloride (Saline Flush) 2.5 ml FLUSH ASDIRECTED PRN PRN Reason: Keep Vein Open Last Admin: 11/24/17 01:31 Dose: 2.5 ml Sodium Chloride (Saline Flush) 10 ml FLUSH ASDIRECTED PRN PRN Reason: Keep Vein Open Last Admin: 11/24/17 01:30 Dose: 10 ml Sodium Chloride (Saline Flush) 2.5 ml FLUSH ASDIRECTED PRN PRN Reason: Keep Vein Open - Free Text/Narrative Note: I have examined the patient. I have discussed treatment plan with the resident. I agree with the assessment and plan outlined in the following resident's note.
--- NOTE | 2017-11-25 14:11 | CR ---
EXAM DATE: 11/24/17 PATIENT'S AGE: 47 Patient: ROBBIE MARTINEZ Facility: [place], [place] Site . Site : 1970 Study: XRay Chest [id number]/28/2018 1:43:48 AM Ordering Physician: Doctor Palma Final Report: INDICATION: CP, SOB, nonsmoker FINDINGS: A single portable chest x-ray shows a normal cardiac silhouette. The lungs show no focal pulmonary opacities. Sharp pleural margins. No pneumothorax. IMPRESSION: No evidence of acute pulmonary abnormalities. Dictated by Carlos Dye MD @ 11/24/2017 1:45:21 AM Dictated by: Carlos Dye MD @ 11/24/2017 01:45:30 (Electronic Signature) Report Signed by Proxy. [facility] CENT[facility]
--- NOTE | 2017-11-26 20:14 | ECHO ---
The echocardiogram report can be seen in this patient's EMR (Electronic Medical Record) in the Reports section. The echocardiogram report has also been scanned into PACS and can be seen there. [facility]
== END 2017-11-25 10:24 | disposition home or self-care (01) ==
LOC: MW.ED 01:11 → MW.MS 03:20
PROVIDERS: ADMIT Internal Medicine; ATTEND Internal Medicine
DX: I48.91 Unspecified atrial fibrillation (principal); E87.6 Hypokalemia; N17.9 Acute kidney failure, unspecified; E83.51 Hypocalcemia; I10 Essential (primary) hypertension; Z87.891 Personal history of nicotine dependence; Z79.82 Long term (current) use of aspirin; Z79.01 Long term (current) use of anticoagulants; Z88.2 Allergy status to sulfonamides; Z79.899 Other long term (current) drug therapy; Z90.89 Acquired absence of other organs; Z98.51 Tubal ligation status
CPT/HCPCS: 36415; 71045; 71045-26; 80048; 80053; 81001; 81025; 83735; 83880; 84443; 84484; 85025; 85610; 93005; 93306; 96361; 96372; 96374; 96375; 96376; 99285-25; A9270-GY; G0378; J1650; J3475; J3480; J3490; J7040

== ENCOUNTER 2021-07-08 21:53 | Emergency (ER) | payer BC ==
[2021-07-08] MEDS ORDERED: Ibuprofen 600 MG Tab PO ONE (22:27)
[2021-07-08] MEDS ORDERED: Acetaminophen 500 MG Tab PO ONE (22:27)
--- NOTE | 2021-07-08 22:29 | EDM.PDOC ---
ED HPI GENERAL MEDICAL PROBLEM - General Chief Complaint: Fever Stated Complaint: FEVER Time Seen by Provider: 07/08/21 21:53 Source of Information: Reports: Patient History Limitations: Reports: No Limitations - History of Present Illness INITIAL COMMENTS - FREE TEXT/NARRATIVE: 50-year-old female past medical history paroxysmal atrial fibrillation on Eliquis presents for fever, nonproductive cough, sore throat, sinus congestion and drainage x1 day. Patient denies difficulty breathing or chest pain. Denies nausea or vomiting. Denies urinary symptoms. - Related Data Allergies Allergy/AdvReac Type Severity Reaction Status Date / Time Sulfa (Sulfonamide Allergy Rash Verified 07/08/21 22:11 Antibiotics) Home Meds: Home Meds Aspirin 1 tab PO DAILY 11/24/17 [History] Apixaban [Eliquis] 5 mg PO BID 15 Days #30 tablet 11/25/17 [Rx] Diltiazem [Cardizem CD] 120 mg PO DAILY 15 Days #15 cap.er 11/25/17 [Rx] Past Medical History Cardiovascular History: Reports: Hypertension - Past Surgical History HEENT Surgical History: Reports: Tonsillectomy Female Surgical History: Reports: Tubal Ligation Musculoskeletal Surgical History: Reports: Ganglion Cyst Social & Family History - Family History Family Medical History: No Pertinent Family History - Tobacco Use Second Hand Smoke Exposure: No - Caffeine Use Caffeine Use: Reports: None - Recreational Drug Use Recreational Drug Use: No ED ROS GENERAL - Review of Systems Review Of Systems: Comprehensive ROS is negative, except as noted in HPI. ED EXAM, GENERAL - Physical Exam Exam: See Below Exam Limited By: No Limitations General Appearance: Alert, WD/WN, No Apparent Distress Ears: Hearing Grossly Normal Throat/Mouth: Normal Voice, No Airway Compromise, Other (dry oral mucosa, no pharyngeal swelling/erythema/exudates, uvulea midline, airway patent) Head: Atraumatic, Normocephalic Respiratory/Chest: No Respiratory Distress, Lungs Clear, Normal Breath Sounds, No Accessory Muscle Use Cardiovascular: Normal Peripheral Pulses, Tachycardia Extremities: Normal Inspection Neurological: Alert, Normal Cognition, Normal Gait Psychiatric: Normal Affect, Normal Mood Skin Exam: Warm, Dry, Intact, Normal Color Course - Vital Signs Last Recorded V/S: Last Vital Signs Temp 100.5 F 07/08/21 22:31 Pulse 110 H 07/08/21 22:09 Resp 20 07/08/21 22:09 BP 152/91 H 07/08/21 22:09 Pulse Ox 96 07/08/21 22:09 - Orders/Labs/Meds Labs: Laboratory Tests 07/08/21 Range/Units 22:05 Influenza Type A RNA NEGATIVE (NEGATIVE) Influenza Type B RNA NEGATIVE (NEGATIVE) SARS-CoV-2 RNA ([facility]) POSITIVE H (NEGATIVE) Meds: Medications Discontinued Medications Generic Name Dose Route Start Last Admin Trade Name Zoraida PRN Reason Stop Dose Admin Acetaminophen 1,000 mg 07/08/21 22:27 07/08/21 22:31 Acetaminophen 500 Mg Tab PO 07/08/21 22:28 1,000 mg ONETIME ONE Administration Ibuprofen 600 mg 07/08/21 22:27 07/08/21 22:31 Ibuprofen 600 Mg Tab PO 07/08/21 22:28 600 mg ONETIME ONE Administration - Re-Assessments/Exams Free Text/Narrative Re-Assessment/Exam: 07/08/21 22:28 Patient presents with fever and flulike symptoms. Will check for influenza and Covid. Will give Tylenol and Motrin for fever. Patient is well-appearing without signs of systemic illness. 07/08/21 23:07 COVID test positive; will d/c with return precautions and outpatient Regeneron order. Departure - Departure Time of Disposition: 23:07 Disposition: Home, Self-Care 01 Condition: Good Clinical Impression: COVID - Discharge Information Instructions: COVID-19: What to Do If You Are Sick- [facility] (09/13/2020) Forms: ED Department Discharge Additional Instructions: Your COVID-19 test is positive. You should isolate until cleared by the [facility]. You were placed on the list for the Regeneron monoclonal antibody infusion. Someone from the hospital will call you tomorrow and help you set this up if you are interested. If you develop difficulty breathing or sudden onset chest pain, you should come back to the hospital for reassessment. You can take over the counter tylenol and motrin to help with your fever. The following information is given to patients seen in the emergency department who are being discharged to home. This information is to outline your options for follow-up care. We provide all patients seen in our emergency department with a follow-up referral. The need for follow-up, as well as the timing and circumstances, are variable depending upon the specifics of your emergency department visit. If you don't have a primary care physician on staff, we will provide you with a referral. We always advise you to contact your personal physician following an emergency department visit to inform them of the circumstance of the visit and for follow-up with them and/or the need for any referrals to a consulting specialist. The emergency department will also refer you to a specialist when appropriate. This referral assures that you have the opportunity for follow-up care with a specialist. All of these measure are taken in an effort to provide you with optimal care, which includes your follow-up. Under all circumstances we always encourage you to contact your private physician who remains a resource for coordinating your care. When calling for follow-up care, please make the office aware that this follow-up is from your recent emergency room visit. If for any reason you are refused follow-up, please contact the [facility] Emergency Department at and asked to speak to the emergency department charge nurse. Please follow up with your primary care physician. If you do not have a primary care physician, see below: [facility] [address] [place] [id number] [facility] [address] [place] [id number] [facility] [address] [place] [id number] Sepsis Event Note (ED) - Evaluation Sepsis Screening Result: No Definite Risk - Focused Exam Vital Signs: Vital Signs Temp Temp Pulse Resp BP Pulse Ox 07/08/21 22:31 100.5 F 07/08/21 22:09 100.5 F 110 H 20 152/91 H 96
[2021-07-08 22:53] LABS: CORONAVIRUS COVID-19 NAA POSITIVE (NEGATIVE); INFLUENZA A NAA NEGATIVE (NEGATIVE); INFLUENZA B NAA NEGATIVE (NEGATIVE)
[2021-07-08 23:19] VITALS: BP 150/81; PULSE 115
== END 2021-07-08 23:16 | disposition home or self-care (01) ==
LOC: MW.ED 21:53
DX: U07.1 COVID-19 (principal); I48.91 Unspecified atrial fibrillation; I10 Essential (primary) hypertension; Z88.2 Allergy status to sulfonamides; Z79.82 Long term (current) use of aspirin; Z79.01 Long term (current) use of anticoagulants
CPT/HCPCS: 0240U; 99283; A9270

== ENCOUNTER 2021-09-24 08:12 | Day surgery (SDC) | payer BC ==
[2021-09-24] MEDS ORDERED: Lactated Ringers 1,000 ML IV SCH (08:45)
[2021-09-24] MEDS ORDERED: Lidocaine 1% 5 ML VIAL ONE (08:46)
[2021-09-24] MEDS ORDERED: fentaNYL 100 MCG/2 ML SDV ONE (08:46)
[2021-09-24] MEDS ORDERED: Midazolam 1 MG/ML 2 ML SDV ONE (08:46)
[2021-09-24] MEDS ORDERED: Propofol 200 MG/20 ML SDV ONE (08:46)
[2021-09-24] MEDS ORDERED: Dexamethasone 4 MG/ML 5 ML MDV ONE (08:46)
[2021-09-24] MEDS ORDERED: Dexmedetomidine 200 MCG/2 ML SDV ONE (08:46)
[2021-09-24] MEDS ORDERED: Water For Injection, Sterile 20 ML ONE (08:47)
[2021-09-24] MEDS ORDERED: Albuterol 0.083% 2.5 MG/3 ML Neb Soln NEB PRN (08:54)
[2021-09-24] MEDS ORDERED: fentaNYL 100 MCG/2 ML SDV IVPUSH PRN (08:54)
[2021-09-24] MEDS ORDERED: HYDROmorphone 1 MG/ML Syringe IVPUSH PRN (08:54)
[2021-09-24] MEDS ORDERED: Ondansetron 4 MG/2 ML SDV IVPUSH PRN (08:54)
[2021-09-24] MEDS ORDERED: Naloxone 0.4 MG/ML SDV IVPUSH PRN (08:54)
[2021-09-24] MEDS ORDERED: Metoclopramide 10 MG/2 ML SDV IVPUSH PRN (08:54)
[2021-09-24] MEDS ORDERED: Ketorolac 30 MG/ML SDV ONE (09:21)
[2021-09-24] MEDS ORDERED: Ondansetron 4 MG/2 ML SDV ONE (09:21)
[2021-09-24] MEDS ORDERED: Acetaminophen/HYDROcodone 325-5 MG Tab PO PRN ×2 (09:49)
[2021-09-24] MEDS ORDERED: Ketorolac 30 MG/ML SDV IVPUSH ONE (09:49)
[2021-09-24 11:26] VITALS: BP 118/72; PULSE 71
== END 2021-09-24 11:36 | disposition home or self-care (01) ==
LOC: MW.SDS 08:12
PROVIDERS: ATTEND Obstetrics & Gynecology
DX: N84.0 Polyp of corpus uteri (principal); G47.30 Sleep apnea, unspecified; E66.9 Obesity, unspecified; Z68.41 Body mass index [BMI] 40.0-44.9, adult; Z88.2 Allergy status to sulfonamides; Z87.891 Personal history of nicotine dependence; Z79.82 Long term (current) use of aspirin; Z79.899 Other long term (current) drug therapy
CPT/HCPCS: 36415; 58558; 85025; J1100; J2250; J2405; J2704; J7120; 00952; J1885; J3010

== ENCOUNTER 2023-10-09 07:07 | Day surgery (SDC) | payer BC ==
[~2023-10-09 07:07] MED LIST: Sodium Chloride 0.9% 10 ML Syringe FLUSH PRN; Sodium Chloride 0.9% 2.5 ML Syringe FLUSH PRN; Sodium Chloride 0.9% 20 ML SDV IV PRN
[2023-10-09] MEDS: Lactated Ringers 1,000 ML IV SCH (07:52)
[2023-10-09] MEDS ORDERED: propofoL 50 ML ONE (08:36)
[2023-10-09] MEDS ORDERED: Lidocaine 2% 5 ML SDV ONE (08:47)
[2023-10-09 09:35] VITALS: BP 116/75; PULSE 68
== END 2023-10-09 09:50 | disposition home or self-care (01) ==
LOC: MW.SDS 07:07
PROVIDERS: ATTEND Surgery
DX: Z12.11 Encounter for screening for malignant neoplasm of colon (principal); K57.30 Diverticulosis of large intestine without perforation or abscess without bleeding; I10 Essential (primary) hypertension; Z87.891 Personal history of nicotine dependence; Z79.82 Long term (current) use of aspirin; Z79.899 Other long term (current) drug therapy
CPT/HCPCS: 45378; 81025; J2704; J7120; 00812; J3490